=== PATIENT | male | born 1945 | race Caucasian/White ===

== ENCOUNTER 2017-10-29 08:33 | Outpatient (CLI) | payer MEDICARE, OTHER ==
[2017-10-29 11:06] LABS: BASOPHILS % (AUTO) 0.6 %; EOSINOPHILS # (AUTO) 0.2 10^3/uL (0.0-0.7); EOSINOPHILS % (AUTO) 2.6 %; HGB - HEMOGLOBIN 13.9 g/dL (14.0-18.0); LYMPHOCYTES # (AUTO) 2.2 10^3/uL (1.5-3.5); LYMPHOCYTES % (AUTO) 28.5 %; MEAN CORPUSCULAR HEMOGLOBIN 31.1 pg (27.0-31.0); MEAN CORPUSCULAR HGB CONC 33.3 g/dL (32.0-36.0); MEAN CORPUSCULAR VOLUME 93.3 fL (80.0-94.0); MEAN PLATELET VOLUME 8.8 fL (7.4-11.4); MONOCYTES # (AUTO) 1.1 10^3/uL (0.0-1.0); MONOCYTES % (AUTO) 14.1 %; NEUTROPHILS # (AUTO) 4.1 10^3/uL (1.5-6.6); NEUTROPHILS % (AUTO) 54.2 %; PLT - PLATELET COUNT 257 10^3/uL (130-450); RED BLOOD COUNT 4.46 10^6/uL (4.70-6.10); RED CELL DISTRIBUTION WIDTH 12.7 % (12.0-15.0); WHITE BLOOD COUNT 7.7 x10^3/uL (4.8-10.8)
[2017-10-29 11:18] LABS: ALBUMIN/GLOBULIN RATIO 1.1 (1.0-2.2); ALKALINE PHOSPHATASE 58 IU/L (42-121); ALT ALANINE AMINOTRANSFERASE 39 IU/L (10-60); AST ASPARTATE AMINOTRANSFERASE 30 IU/L (10-42); BILIRUBIN,TOTAL 0.8 mg/dL (0.2-1.0); BUN - BLOOD UREA NITROGEN 15 mg/dL (6-20); CARBON DIOXIDE - CO2 27 mmol/L (21-32); CHLORIDE 103 mmol/L (101-111); CHOL/HDL RATIO 5.3 (<5.0); CHOLESTEROL 158 mg/dL; GFR - MDRD 74 (>89); GLUCOSE 95 mg/dL (70-100); HDL CHOLESTEROL 30 mg/dL; LDL CHOLESTEROL,CALCULATED 95 mg/dL; LDL/HDL RATIO 3.2 (<3.6); SODIUM 137 mmol/L (135-145); TOTAL PROTEIN 7.7 g/dL (6.7-8.2); VLDL CHOLESTEROL 33 mg/dL
[2017-10-30 16:16] LABS: HEPATITIS C ANTIBODY NON-REACTIVE (NON-REACTIVE)
== END 2017-10-29 08:34 | disposition home or self-care (01) ==
LOC: LAB.F 08:33
PROVIDERS: ATTEND Physician Assistant Medical
DX: C61 Malignant neoplasm of prostate (principal); I10 Essential (primary) hypertension; E78.2 Mixed hyperlipidemia; Z11.59 Encounter for screening for other viral diseases; Z79.899 Other long term (current) drug therapy
CPT/HCPCS: 36415; 80053; 80061; 83721; 84153; 85025; 86803

== ENCOUNTER 2017-11-26 09:17 | Outpatient (CLI) | payer MEDICARE, OTHER ==
[2017-11-26 18:02] LABS: BASOPHILS % (AUTO) 0.6 %; EOSINOPHILS # (AUTO) 0.2 10^3/uL (0.0-0.7); EOSINOPHILS % (AUTO) 3.2 %; LYMPHOCYTES # (AUTO) 1.8 10^3/uL (1.5-3.5); LYMPHOCYTES % (AUTO) 24.8 %; MEAN CORPUSCULAR HEMOGLOBIN 30.8 pg (27.0-31.0); MEAN CORPUSCULAR HGB CONC 32.8 g/dL (32.0-36.0); MEAN CORPUSCULAR VOLUME 93.7 fL (80.0-94.0); MEAN PLATELET VOLUME 8.6 fL (7.4-11.4); MONOCYTES # (AUTO) 0.7 10^3/uL (0.0-1.0); MONOCYTES % (AUTO) 9.9 %; NEUTROPHILS # (AUTO) 4.4 10^3/uL (1.5-6.6); NEUTROPHILS % (AUTO) 61.5 %; PLT - PLATELET COUNT 233 10^3/uL (130-450); RED BLOOD COUNT 4.55 10^6/uL (4.70-6.10); RED CELL DISTRIBUTION WIDTH 13.2 % (12.0-15.0); WHITE BLOOD COUNT 7.1 x10^3/uL (4.8-10.8)
[2017-11-26 19:10] LABS: ALBUMIN 4.2 g/dL (3.2-5.5); ALBUMIN/GLOBULIN RATIO 1.2 (1.0-2.2); ALKALINE PHOSPHATASE 60 IU/L (42-121); ALT ALANINE AMINOTRANSFERASE 37 IU/L (10-60); AST ASPARTATE AMINOTRANSFERASE 29 IU/L (10-42); BILIRUBIN,TOTAL 0.8 mg/dL (0.2-1.0); BUN - BLOOD UREA NITROGEN 14 mg/dL (6-20); CALCIUM 9.1 mg/dL (8.5-10.3); CARBON DIOXIDE - CO2 26 mmol/L (21-32); CHLORIDE 100 mmol/L (101-111); CHOL/HDL RATIO 4.7 (<5.0); CHOLESTEROL 164 mg/dL; CREATININE 1.1 mg/dL (0.6-1.2); GFR - MDRD 66 (>89); GLUCOSE 139 mg/dL (70-100); HDL CHOLESTEROL 35 mg/dL; LDL CHOLESTEROL,CALCULATED 76 mg/dL; LDL/HDL RATIO 2.2 (<3.6); SODIUM 133 mmol/L (135-145); TOTAL PROTEIN 7.6 g/dL (6.7-8.2); VLDL CHOLESTEROL 53 mg/dL
[2017-11-27 13:16] LABS: HEPATITIS C ANTIBODY NON-REACTIVE (NON-REACTIVE)
[2017-11-28 14:11] LABS: ANA SCREEN NEGATIVE (NEGATIVE)
== END 2017-11-26 09:18 | disposition home or self-care (01) ==
LOC: LAB.F 09:17
PROVIDERS: ATTEND Physician Assistant Medical
DX: C61 Malignant neoplasm of prostate (principal); Z79.899 Other long term (current) drug therapy; I10 Essential (primary) hypertension; E78.2 Mixed hyperlipidemia; Z11.59 Encounter for screening for other viral diseases; G60.9 Hereditary and idiopathic neuropathy, unspecified
CPT/HCPCS: 36415; 80053; 80061; 82306; 82607; 83721; 84153; 85025; 86038; 86803

== ENCOUNTER 2021-01-06 08:13 | Outpatient (CLI) | payer OTHER ==
[2021-01-06 15:32] LABS: ALBUMIN 4.3 g/dL (3.2-5.5); ALBUMIN/GLOBULIN RATIO 1.3 (1.0-2.2); ALKALINE PHOSPHATASE 65 IU/L (42-121); ALT ALANINE AMINOTRANSFERASE 25 IU/L (10-60); AST ASPARTATE AMINOTRANSFERASE 22 IU/L (10-42); BILIRUBIN,TOTAL 0.8 mg/dL (0.2-1.0); BUN - BLOOD UREA NITROGEN 17 mg/dL (6-20); CARBON DIOXIDE - CO2 27 mmol/L (21-32); CHLORIDE 101 mmol/L (101-111); CHOLESTEROL 148 mg/dL; CREATININE 0.9 mg/dL (0.6-1.2); GFR - MDRD 82 (>89); GLUCOSE 95 mg/dL (70-100); HDL CHOLESTEROL 37 mg/dL; LDL CHOLESTEROL,CALCULATED 84 mg/dL; LDL/HDL RATIO 2.3 (<3.6); POTASSIUM 4.1 mmol/L (3.5-5.0); SODIUM 138 mmol/L (135-145); TOTAL PROTEIN 7.6 g/dL (6.7-8.2); TRIGLYCERIDES 134 mg/dL; VLDL CHOLESTEROL 27 mg/dL
== END 2021-01-06 08:14 | disposition home or self-care (01) ==
LOC: LAB.S 08:13
PROVIDERS: ATTEND Physician Assistant
DX: I10 Essential (primary) hypertension (principal); E78.5 Hyperlipidemia, unspecified; C61 Malignant neoplasm of prostate
CPT/HCPCS: 36415; 80053; 80061; 83721; 84153

== ENCOUNTER 2021-09-15 06:59 | Outpatient (CLI) | payer OTHER ==
--- NOTE | 2021-09-15 09:35 | Ultrasound Report ---
PROCEDURE: Aorta Screening INDICATIONS: EX SMOKER TECHNIQUE: Real time scanning was performed of the aorta and iliac arteries, with image documentatio n. COMPARISON: None FINDINGS: Aorta: Proximal aortic diameter measures 2.9 x 2 point cm. Mid-aorta measures 2.0 x 2.0 cm. Distal aortic diameter is 2.0 x 2.3 cm. Mild scattered calcification. Iliac arteries: Right common iliac artery measures 1.0 x 1.3 cm. Left common iliac artery measures 1.4 x 1.4 cm. IMPRESSION: No aneurysmal dilation. Mild scattered calcifications. Reviewed by: Britany Love MD on 09/15/2021 9:33 AM PDT Approved by: Britany Love MD on 09/15/2021 9:33 AM PDT Station ID: [id number]
== END 2021-09-15 07:00 | disposition home or self-care (01) ==
LOC: DI 06:59
PROVIDERS: ATTEND Nurse Practitioner Family
DX: Z13.6 Encounter for screening for cardiovascular disorders (principal); Z87.891 Personal history of nicotine dependence

== ENCOUNTER 2022-01-18 15:21 | Outpatient (CLI) | payer OTHER ==
--- NOTE | 2022-01-19 11:35 | CT Report ---
PROCEDURE: CHEST WO INDICATIONS: LUNG NODULE TECHNIQUE: Noncontrast 1mm axial images were acquired from the pulmonary apices to the posterior costophrenic an gles. Axial 5 mm soft tissue kernel reconstructions were performed as well as 8 mm axial MIP and cor onal and sagittal 5 mm reformations. For radiation dose reduction, the following was used: automate d exposure control, adjustment of mA and/or kV according to patient size. COMPARISON: Not available. FINDINGS: Image quality: Excellent. Lungs and pleura: There is a 4 mm noncalcified subpleural nodule in the right lower lobe (series 4 i mage [id number]). A 1 cm calcified granuloma is seen in the posterior inferior left lower lobe. There is lef t lower lobe scars and atelectasis No acute air space opacities. No pleural effusions or pneumothora x. Central and peripheral airways are patent and normal in caliber. Mediastinum: Heart size is normal. Moderate atherosclerotic calcification of coronary arteries. No pericardial effusion. No mediastinal adenopathy by size criteria. Thoracic aorta and central pulmon catherine arteries are normal in size. Esophagus is normal in caliber. Small hiatal hernia. Bones and chest wall: No suspicious bony lesions. No vertebral body compression fractures. No axil giselle or supraclavicular adenopathy by size criteria. The thyroid is normal in size and there are no incidental findings. Abdomen: Visualized upper abdominal solid organs and bowel loops appear normal in the absence of con trast. There are gallstones. IMPRESSION: 1. A 4 mm nodule in the right lower lobe. Please see enclosed follow-up recommendation. 2. A calcified granulomatous granuloma in the left upper lobe. 3. Left basilar scars and atelectasis. 4. Moderate coronary artery opacification. 5. Cholelithiasis. Fleischner Society criteria for SOLID lung nodule followup. Nodule size (mm)Low-risk patientHigh-risk patient "d4No follow-up neededFollow-up at 12 mo; if no change, no further follow-up >3-2Jfptvd-bl CT at 12 mo; if no change, no further follow-up needed.Initial follow-up CT at 6-12 mo, then 18-24 mo if no change. >6-8Initial follow-up CT at 6-12 mo, then 18-24 mo if no change. Initial follow-up CT at 3-6 mo, then 9-12 mo and 24 mo if no change. >8Follow-up CT at 3, 9, 24 mo. Or PET and/or biopsy.Same as for low-risk pts. Reviewed by: Gisella Payton MD on 01/19/2022 11:34 AM PDT Approved by: Gisella Payton MD on 01/19/2022 11:34 AM PDT Station ID: [id number]
== END 2022-01-18 15:22 | disposition home or self-care (01) ==
LOC: DI 15:21
PROVIDERS: ATTEND Nurse Practitioner Family
DX: R91.1 Solitary pulmonary nodule (principal); K80.20 Calculus of gallbladder without cholecystitis without obstruction; R93.1 Abnormal findings on diagnostic imaging of heart and coronary circulation

== ENCOUNTER 2023-01-04 09:11 | Outpatient (CLI) | payer OTHER ==
--- NOTE | 2023-01-04 13:32 | CT Report ---
PROCEDURE: CHEST WO INDICATIONS: NODULE OF LUNG TECHNIQUE: Noncontrast 1mm axial images were acquired from the pulmonary apices to the posterior costophrenic an gles. Axial 5 mm soft tissue kernel reconstructions were performed as well as 8 mm axial MIP and cor onal and sagittal 5 mm reformations. For radiation dose reduction, the following was used: automate d exposure control, adjustment of mA and/or kV according to patient size. COMPARISON: CT chest 01/18/2022 FINDINGS: Lymph nodes: No evidence of thoracic lymphadenopathy however evaluation for mediastinal and hilar wenceslao nopathy is limited in the absence of intravenous contrast. Vasculature: Aorta and main pulmonary artery diameters are within normal range. Heart: No pericardial effusion. Multivessel coronary artery calcifications and/or stents. Lung parenchyma and pleura: 1.0 x 0.8 cm lobulated nodule at the superior segment of the left lower l obe (4/102) previously 0.9 x 0.7 cm remeasured, similar to minimally increased. Previously indexed 5 mm right lower lobe nodule (4/192) is unchanged when remeasured similarly on the prior study. A few s cattered calcified granulomata are present. No pleural effusion. Chest wall/musculoskeletal: Multilevel degenerative change of the visualized spine. Redemonstrated no nspecific sclerotic focus at the L1 vertebral body, mildly increased in size and conspicuity, with a narrow zone of transition present. Visualized upper abdomen: Cholelithiasis. IMPRESSION: 1. Previously indexed small right lower lobe pulmonary nodule is unchanged. 2. Similar to slight increase in size of a 1.0 cm nodule at the superior segment of the left lower lo be. Pulmonology consultation may be helpful to direct further management. If additional imaging is en larged, could consider follow-up chest CT in 6-12 months or other interval at clinical discretion, or PET/CT. 3. Mild increase in size and conspicuity of a nonspecific sclerotic focus at the L1 vertebral body. A ttention on follow-up is recommended. 4. Cholelithiasis. Reviewed by: Chito Hendricks MD on 01/04/2023 1:31 PM PDT Approved by: Chito Hendricks MD on 01/04/2023 1:31 PM PDT Station ID: [id number]
== END 2023-01-04 09:12 | disposition home or self-care (01) ==
LOC: DI 09:11
PROVIDERS: ATTEND Nurse Practitioner Family
DX: R91.8 Other nonspecific abnormal finding of lung field (principal); K80.20 Calculus of gallbladder without cholecystitis without obstruction

== ENCOUNTER 2023-01-23 08:18 | Outpatient (CLI) | payer OTHER ==
[2023-01-23 15:13] LABS: BASOPHILS # (AUTO) 0.1 10^3/uL (0.0-0.1); EOSINOPHILS # (AUTO) 0.3 10^3/uL (0.0-0.7); EOSINOPHILS % (AUTO) 5.1 %; HCT - HEMATOCRIT 42.8 % (42.0-52.0); HGB - HEMOGLOBIN 13.6 g/dL (14.0-18.0); LYMPHOCYTES # (AUTO) 1.9 10^3/uL (1.5-3.5); LYMPHOCYTES % (AUTO) 28.6 %; MEAN CORPUSCULAR HEMOGLOBIN 31.7 pg (27.0-31.0); MEAN CORPUSCULAR HGB CONC 31.8 g/dL (32.0-36.0); MEAN CORPUSCULAR VOLUME 99.8 fL (80.0-94.0); MEAN PLATELET VOLUME 11.1 fL (7.4-11.4); MONOCYTES % (AUTO) 15.4 %; NEUTROPHILS # (AUTO) 3.3 10^3/uL (1.5-6.6); NEUTROPHILS % (AUTO) 49.5 %; PLT - PLATELET COUNT 218 10^3/uL (130-450); RED BLOOD COUNT 4.29 10^6/uL (4.70-6.10); RED CELL DISTRIBUTION WIDTH 13.4 % (12.0-15.0); WHITE BLOOD COUNT 6.7 x10^3/uL (4.8-10.8)
== END 2023-01-23 08:19 | disposition home or self-care (01) ==
LOC: LAB.S 08:18
DX: C61 Malignant neoplasm of prostate (principal)
CPT/HCPCS: 36415; 85025